=== PATIENT | male | born 1935 | race Caucasian/White ===

== ENCOUNTER 2018-07-17 18:57 | Outpatient (CLI) | payer MEDICARE, MEDICAID | END 2018-07-17 23:59 | disposition home or self-care (01) | LOC: CL 18:57 | PROVIDERS: ATTEND Family Medicine | DX: E86.0 Dehydration (principal) | CPT/HCPCS: 36569; C1751 ==

== ENCOUNTER 2018-10-03 10:48 | Inpatient (IN) | payer MEDICARE, MEDICAID ==
[~2018-10-03] VITALS: Ht 162.6 cm; Wt 61.9 kg
--- NOTE | 2018-10-03 10:52 | NUR ---
BIBPA UNIT 255 FROM [facility] FOR VOMITING x 2 THIS MORNING. TO ER BED 9, HOOKED TO MONITOR, CHANGED TO DR CALI CHILDS AT BEDSIDE
[2018-10-03] MEDS ORDERED: ONDANSETRON HCL/PF 4 MG/2 ML VIAL ONE (11:15)
[2018-10-03] MEDS ORDERED: PSYL1PAC8 PO (11:23)
[2018-10-03] MEDS ORDERED: ASCO-340 PO (11:23)
[2018-10-03] MEDS ORDERED: IPRA0.2S9 IH (11:23)
[2018-10-03] MEDS ORDERED: ASPI-1169 PO (11:23)
[2018-10-03] MEDS ORDERED: NUTR1PAC14 PO (11:23)
[2018-10-03] MEDS ORDERED: MAG30ORA PO (11:23)
[2018-10-03] MEDS ORDERED: MULT-447 PO (11:23)
[2018-10-03] MEDS ORDERED: MORP20SO PO (11:23)
[2018-10-03] MEDS ORDERED: PANT40TA2 PO (11:23)
[2018-10-03] MEDS ORDERED: NA P133E RC (11:23)
[2018-10-03] MEDS ORDERED: ATRO2DRO4 PO (11:23)
[2018-10-03] MEDS ORDERED: BISA10SU8 RC (11:23)
[2018-10-03] MEDS ORDERED: ATOR10TA PO (11:23)
[2018-10-03] MEDS ORDERED: DOCU250C14 PO (11:23)
[2018-10-03] MEDS ORDERED: ACET650S11 RC (11:23)
[2018-10-03] MEDS ORDERED: ONDA8TAB6 PO (11:23)
[2018-10-03] MEDS ORDERED: ACET-868 PO ×2 (11:23)
[2018-10-03] MEDS ORDERED: LOSA50TA39 PO (11:23)
[2018-10-03] MEDS ORDERED: ALBU2.5V38 IH (11:23)
[2018-10-03] MEDS ORDERED: AMIN30LI27 PO (11:23)
[2018-10-03] MEDS ORDERED: TAMS-12 PO (11:23)
[2018-10-03] MEDS ORDERED: MAGN400O6 PO (11:23)
[2018-10-03] MEDS ORDERED: LEVO75TA7 PO (11:23)
[2018-10-03] MEDS ORDERED: ONDANSETRON HCL/PF 4 MG/2 ML VIAL IVP ONE (11:30)
[2018-10-03] MEDS ORDERED: IV NS 0.9% 1,000 ML BAG IV ONE ×2 (11:30→14:00)
[2018-10-03 11:31] LABS: BASOPHILS # (AUTO) 0.1 /CMM (0.0-0.2); BASOPHILS % (AUTO) 0.6 % (0.0-2.0); HEMATOCRIT 36 % (39-51); LYMPHOCYTES # (AUTO) 0.3 /CMM (0.8-4.8); LYMPHOCYTES % (AUTO) 2.7 % (20.0-44.0); MEAN CORPUSCULAR HGB CONC 33 g/dl (31.0-36.0); MEAN CORPUSCULAR VOLUME 87 fL (80-96); MONOCYTES # (AUTO) 0.4 /CMM (0.1-1.30); NEUTROPHILS # (AUTO) 10.2 /CMM (1.8-8.9); NEUTROPHILS % (AUTO) 92.7 % (43.0-81.0); PLATELET COUNT (AUTO) 359 /CMM (150-450); RED BLOOD CELL COUNT(AUTO) 4.12 MIL/uL (4.5-6.0)
[2018-10-03 11:39] LABS: CALCIUM, SERUM 8.7 mg/dL (8.5-10.1); CARBON DIOXIDE 26 mmol/L (21-32); CHLORIDE 103 mmol/L (98-107); CREATININE 1.2 mg/dL (0.6-1.3); GLUCOSE 156 mg/dL (74-106); POTASSIUM 3.3 mmol/L (3.5-5.1); SODIUM SERUM 140 mmol/L (136-145); UREA NITROGEN, BLOOD 24 mg/dL (7-18)
[2018-10-03 11:45] LABS: APPEARANCE,URINE Clear (CLEAR); BILIRUBIN,URINE Negative (NEGATIVE); BLOOD, URINE Moderate Ery/uL (NEGATIVE); COLOR,URINE Yellow (YELLOW); KETONES,URINE Negative (NEGATIVE); LEUKOCYTE ESTERASE ,URINE Negative (NEGATIVE); NITRITE, URINE Negative (NEGATIVE); PROTEIN,URINE Trace mg/dl (NEGATIVE); UGLUCOSE Negative (NEGATIVE); UROBILINOGEN,URINE 0.2 EU/dL (0.2)
[2018-10-03 11:45] LABS: ALANINE AMINOTRANSFERASE 24 U/L (12-78); ALKALINE PHOSPHATASE 103 U/L (46-116); ASPARTATE AMINOTRANSFERASE 22 U/L (15-37); BILIRUBIN,DIRECT 0.1 mg/dL (0.0-0.2); BILIRUBIN,TOTAL 0.6 mg/dL (0.2-1.0); TOTAL PROTEIN, SERUM 7.5 g/dL (6.4-8.2)
[2018-10-03] MEDS ORDERED: ACETAMINOPHEN 650 MG/SUPP.RECT RC ONE ×3 (11:45→14:00)
--- NOTE | 2018-10-03 11:45 | NUR ---
wasted 650mg tylenol suppository, accidentally dropped the medication on the floor.
--- NOTE | 2018-10-03 11:46 | NUR ---
Dr Nur verbally ordered tylenol 650mg suppository.
[2018-10-03 11:53] LABS: BACTERIA,URINE 1+ /HPF (None Seen); RBC,URINE 21-50 /HPF (0-2); SQUAMOUS EPITHELIAL CELL,UR None Seen /HPF (None Seen)
[2018-10-03 11:54] LABS: HYALINE CASTS, URINE Moderate /LPF (None Seen); MUCUS,URINE Many /LPF (None Seen)
--- NOTE | 2018-10-03 12:46 | NUR ---
[facility] PAGED ISAMAR
[2018-10-03] MEDS ORDERED: LEVOFLOXACIN 750 MG /D5W 150ML 150 ML IV ONE ×2 (13:44→14:00)
[2018-10-03] MEDS ORDERED: PIPERACILLIN /TAZOBACTAM 3.375 G in IV D5W 50 ML IV ONE (14:00)
[2018-10-03] MEDS ORDERED: HYDROCODONE/APAP 5/325MG 1 EACH TABLET PO PRN (14:30)
[2018-10-03] MEDS ORDERED: BISACODYL SUPP (10 MG) 10 MG/SUPP.RECT SUPP.RECT RC PRN (14:30)
[2018-10-03] MEDS ORDERED: MAGNESIUM HYDROXIDE 30 ML UDC PO PRN ×2 (14:30)
[2018-10-03] MEDS ORDERED: MAG HYDROX/AL HYDROX/SIMETH 30 ML UDC PO PRN ×2 (14:30)
[2018-10-03] MEDS ORDERED: NA PHOS,M-B/NA PHOS,DI-BA 1 EA ENEMA RC PRN (14:30)
[2018-10-03] MEDS ORDERED: ATROPINE SULFATE OPHTH SOLN 15 ML BOTTLE EACHEYE PRN (14:30)
[2018-10-03] MEDS ORDERED: VANCOMYCIN 1 GM in IV NS 0.9% 250 ML IV SCH (14:30)
[2018-10-03] MEDS ORDERED: ONDANSETRON HCL/PF 4 MG/2 ML VIAL IVP PRN (14:30)
[2018-10-03] MEDS ORDERED: IPRATROPIUM NEB FS 0.5 MG/2.5 ML AMPUL.NEB IH PRN (14:30)
[2018-10-03] MEDS ORDERED: Z GUARD REMEDY 2 OZ OINT TP PRN (14:30)
--- NOTE | 2018-10-03 14:49 | NUR ---
UNABLE TO DO A 2D ECHO DUE TO PATIENT POSITIONING. PATIENT UNCOOPERATIVE AND UNRESPONSIVE.
--- NOTE | 2018-10-03 15:11 | NUR ---
[facility] paged
--- NOTE | 2018-10-03 15:16 | NUR ---
Report given to MARILYN Lane for BUD tele [phone].
--- NOTE | 2018-10-03 15:30 | NUR ---
ADMISSION NOTES PATIENT ADMITTED FROM ER 83Y/OLD MALE ON TELE, DX OF SEPSIS. TELE MONITOR ON SR- 103/ 104 . PATIENT NON VERNAL, CONFUSED, TOTAL CARE. SKIN ASSESSMENT DONE PATIENT HAS A RASH ON UPPER CHEST, PICTURE TAKEN PATIENT INCONTINENT, USING DIAPER. ASSIST TURN AND REPOSTION Q 2 HR. IV ACCESS ON LEFT FA INTACT, V/S TAKEN BP-129/70, P-84, R-19, 02-96 ROOM AIR, T98.9. NEEDS ATTENDED AND ANTICIPATED, DR PENN AWARE OF NEW PATIENT AND MEDICATION. CALL LIGHT WITHIN TO REACH. SIDE RAILS UP X3, CONTINUED MONITORING.
[2018-10-03] MEDS ORDERED: FEE PK DOSING 1 MIN EA MC ONE (15:37)
[2018-10-03 15:52] VITALS: BP 129/70
[2018-10-03 16:00] VITALS: BP 129/70
[2018-10-03] MEDS: VANCOMYCIN 0.75 GM in IV D5W 250 ML IV SCH (16:32)
[2018-10-03] MEDS: IV NS 0.9% 1,000 ML IV PRN (16:32)
[2018-10-03] MEDS: PIPERACILLIN /TAZOBACTAM 3.375 G in IV D5W 50 ML IV SCH ×2 (17:44→23:36)
--- NOTE | 2018-10-03 18:30 | NUR ---
RN NOTES PATIENT STABLE, NO ACUTE RESPIRATORY DISTRESS, V/S STABLE, INFUSING ZOSYN IV AT THIS TIME, INTACT, ASSIST TURN AND REPOSTION Q 2 HR. ASSIST EATING BY FUR DRESSING SUPERVISOR PATIENT TOLERATED 75% . CALL LIGHT WITHIN TO REACH, SAFETY PRECAUTION MAINTAINED ALL THE TIME.
--- NOTE | 2018-10-03 19:10 | NUR ---
DIPLOMA DENTAL ASSISTANT OPENING NOTES Received patient in bed, sleeping. As per report from MARILYN Mcgowan, patient is non-verbal. Breathing even and unlabored. Not in any distress. Peripheral IV infusing at 75 mL/hr. Potassium is 3.3, no replacement as per RN, been trying to call pharmacy but no answer, morning CN Sherry aware. As per CN and RN, 3.3 is not critical, will do it tomorrow. Tele monitor in place, sinus rhythm 96. Patient stable as endorsed by the morning RN. Will continue to monitor accordingly
[2018-10-03] MEDS ORDERED: ALBUTEROL FS 2.5 MG/0.5 ML VIAL.NEB NEB PRN (19:30)
[2018-10-03] MEDS: ALBUTEROL FS 2.5 MG/3 ML VIAL.NEB NEB SCH (19:30)
[2018-10-03 20:00] VITALS: BP 120/78
[2018-10-03 20:07] VITALS: BP 120/78
[2018-10-03] MEDS: ENOXAPARIN SODIUM 40 MG/0.4 ML DISP.SYRIN SQ SCH (20:45)
[2018-10-03] MEDS: ATORVASTATIN 10 MG TABLET PO SCH (21:34)
[2018-10-03] MEDS: TAMSULOSIN 0.4 MG CAP.SR.24H PO SCH (21:34)
--- NOTE | 2018-10-03 21:45 | NUR ---
LEAF SUCKER OPERATOR NOTES Parth Amy informed about potassium of 3.3. Order of potassium chloride 40meq PO once, noted and carried out.
[2018-10-03] MEDS ORDERED: POTASSIUM CHLORIDE 20 MEQ TAB.PRT.SR PO ONE (22:00)
[2018-10-04] VITALS: BP 121/66
[2018-10-04] MEDS: IV NS 0.9% 1,000 ML IV PRN ×2 (03:35→14:35)
[2018-10-04] MEDS: VANCOMYCIN 0.75 GM in IV D5W 250 ML IV SCH ×3 (03:37→16:43)
[2018-10-04 04:00] VITALS: BP 125/79
[2018-10-04] MEDS: PIPERACILLIN /TAZOBACTAM 3.375 G in IV D5W 50 ML IV SCH ×4 (05:33→23:11)
[2018-10-04 06:04] LABS: BASOPHILS % (AUTO) 0.1 % (0.0-2.0); HEMATOCRIT 28 % (39-51); HEMOGLOBIN 9.4 g/dL (13.5-17.5); LYMPHOCYTES # (AUTO) 0.6 /CMM (0.8-4.8); MEAN CORPUSCULAR HGB CONC 34 g/dl (31.0-36.0); MEAN CORPUSCULAR VOLUME 87 fL (80-96); MONOCYTES # (AUTO) 0.5 /CMM (0.1-1.30); MONOCYTES % (AUTO) 4.4 % (2.0-12.0); NEUTROPHILS # (AUTO) 10.6 /CMM (1.8-8.9); NEUTROPHILS % (AUTO) 90.5 % (43.0-81.0); PLATELET COUNT (AUTO) 229 /CMM (150-450); RED BLOOD CELL COUNT(AUTO) 3.22 MIL/uL (4.5-6.0); WHITE BLOOD COUNT (AUTO) 11.7 K/uL (4.3-11.0)
[2018-10-04 06:19] LABS: CHOLESTEROL 124 mg/dL (<200); HDL CHOLESTEROL 56 mg/dL (40-60); LDL 68 mg/dL (0-99); TRIGLYCERIDES 37 mg/dL (30-150)
[2018-10-04 06:25] LABS: CARBON DIOXIDE 23 mmol/L (21-32); CHLORIDE 107 mmol/L (98-107); GLUCOSE 151 mg/dL (74-106); PHOSPHORUS 2.8 mg/dL (2.5-4.9); POTASSIUM 3.6 mmol/L (3.5-5.1); SODIUM SERUM 139 mmol/L (136-145); UREA NITROGEN, BLOOD 23 mg/dL (7-18)
--- NOTE | 2018-10-04 07:10 | NUR ---
CONTROL OFFICER MANAGER CLOSING NOTES Patient sleeping in bed. Breathing even and unlabored. Not in any distress. Peripheral IV infusing at 125mL/hr. Tele monitor in place, sinus rhythm 87. No acute changes throughout the shift. All needs attended to. All due medications given as ordered. Safety precautions in place. Endorsed BUD to MARILYN Sam
--- NOTE | 2018-10-04 07:23 | NUR ---
AWNING FRAME MAKER OPENING NOTES PT WAS RECEIVED IM BED AT LOWEST AND LOCKED POSITION WITH SIDE RAILS UP X2, PT IS NONVERBAL A/O X0-1 ON BEDREST, BREATHING EVEN AND UNLABORED ON RA, NO S/S OF PAIN OR DISTRESS NOTED, IV IS PATENT AND INTACT, SAFETY PRECAUTIONS IN PLACE, CALL LIGHT WITHIN REACH, WILL MONITOR ACCORDINGLY
[2018-10-04 08:00] VITALS: BP 113/86
[2018-10-04] MEDS: LEVOTHYROXINE SODIUM 75 MCG TABLET PO SCH (08:35)
[2018-10-04] MEDS: DOCUSATE SODIUM 250 MG CAPSULE PO SCH (08:35)
[2018-10-04] MEDS: LACTOBACILLUS RHAMNOSUS GG 1 EACH CAP.SPRINK PO SCH ×2 (08:35→16:52)
[2018-10-04] MEDS: ASPIRIN 81 MG TAB.CHEW PO SCH (08:35)
[2018-10-04] MEDS: LOSARTAN POTASSIUM 50 MG TABLET PO SCH (08:36)
[2018-10-04] MEDS: PANTOPRAZOLE 40 MG TABLET.DR PO SCH (08:37)
[2018-10-04] MEDS: ACETAMINOPHEN 325 MG TABLET PO PRN (11:44)
--- NOTE | 2018-10-04 11:45 | NUR ---
RN NOTE PT GIVEN TYLENOL AT THIS TIME DUE TO FEVER OF 100.6
[2018-10-04 16:00] VITALS: BP 149/64
[2018-10-04] MEDS: ALBUTEROL FS 2.5 MG/3 ML VIAL.NEB NEB SCH ×3 (16:20→19:34)
--- NOTE | 2018-10-04 16:43 | NUR ---
RN NOTE VANCO TROUGH CAMEBACK 20, PHARMACY WAS CALLED REGARDING DOSE ADMINISTRATION AND THEY SAID IT WAS OKAY TO GIVE, VANCO GIVEN AT THIS TIME
--- NOTE | 2018-10-04 18:18 | NUR ---
RN CLOSING NOTE PT IN BED AT LOWEST AND LOCKED POSITION WITH SIDERAILS UP X2, A/O X0-1 NON-VERBAL, BREATHING EVEN AND UNLABORED ON RA, NO S/S OF PAIN OR DISTRESS, IV IS PATENT AND INTACT, ON KCI MATTRESS, SAFETY PRECAUTIONS IN PLACE, CALL LIGHT WITHIN REACH, ALL NEEDS ATTENDED TO, WILL ENDORSE TO AUTOMOBILE RENTAL AGENT RN FOR BUD.
--- NOTE | 2018-10-04 19:05 | NUR ---
MS RN OPENING NOTES Received patient sleeping in bed. Breathing even and unlabored, tolerating RA. Not in any distress. Peripheral IV infusing at 125mL/hr. Safety measures in place. Call giraldo within easy reach. Bed in low, locked position. Will continue to monitor accordingly
[2018-10-04 20:00] VITALS: BP 146/67
[2018-10-04 20:03] VITALS: BP 146/67
[2018-10-04] MEDS: ENOXAPARIN SODIUM 40 MG/0.4 ML DISP.SYRIN SQ SCH (21:11)
[2018-10-04] MEDS: TAMSULOSIN 0.4 MG CAP.SR.24H PO SCH (21:14)
[2018-10-04] MEDS: ATORVASTATIN 10 MG TABLET PO SCH (21:14)
[2018-10-05] MEDS: ALBUTEROL FS 2.5 MG/3 ML VIAL.NEB NEB SCH ×7 (00:11→23:03)
[2018-10-05] MEDS: IV NS 0.9% 1,000 ML IV PRN (02:45)
[2018-10-05] MEDS: VANCOMYCIN 0.75 GM in IV D5W 250 ML IV SCH ×2 (03:24→21:36)
[2018-10-05] MEDS: PIPERACILLIN /TAZOBACTAM 3.375 G in IV D5W 50 ML IV SCH ×3 (05:29→17:09)
[2018-10-05 06:35] LABS: CALCIUM, SERUM 7.9 mg/dL (8.5-10.1); CARBON DIOXIDE 22 mmol/L (21-32); CHLORIDE 108 mmol/L (98-107); GLUCOSE 134 mg/dL (74-106); MAGNESIUM 1.9 mg/dL (1.8-2.4); PHOSPHORUS 2.1 mg/dL (2.5-4.9); SODIUM SERUM 140 mmol/L (136-145); UREA NITROGEN, BLOOD 17 mg/dL (7-18)
[2018-10-05 06:36] LABS: POTASSIUM 2.6 mmol/L (3.5-5.1)
--- NOTE | 2018-10-05 06:40 | NUR ---
RN NOTES Received a call from lab with critical value of Potassium 2.60. Called Parth Reyes DNP. Awaiting callback
[2018-10-05 06:47] LABS: BASOPHILS % (AUTO) 0.1 % (0.0-2.0); HEMATOCRIT 26 % (39-51); HEMOGLOBIN 8.9 g/dL (13.5-17.5); LYMPHOCYTES # (AUTO) 0.5 /CMM (0.8-4.8); LYMPHOCYTES % (AUTO) 5.2 % (20.0-44.0); MEAN CORPUSCULAR HGB CONC 34 g/dl (31.0-36.0); MEAN CORPUSCULAR VOLUME 87 fL (80-96); MONOCYTES # (AUTO) 0.6 /CMM (0.1-1.30); MONOCYTES % (AUTO) 5.8 % (2.0-12.0); NEUTROPHILS # (AUTO) 8.5 /CMM (1.8-8.9); NEUTROPHILS % (AUTO) 88.9 % (43.0-81.0); PLATELET COUNT (AUTO) 205 /CMM (150-450); RED BLOOD CELL COUNT(AUTO) 3.02 MIL/uL (4.5-6.0); WHITE BLOOD COUNT (AUTO) 9.6 K/uL (4.3-11.0)
--- NOTE | 2018-10-05 06:53 | NUR ---
RN CLOSING NOTES Patient sleeping in bed. Breathing even and unlabored. Not in any distress. Peripheral IV infusing at 125mL/hr. No acute changes throughout the shift. All needs attended to. All due medications given as ordered. Safety precautions in place; call giraldo within easy reach. Bed in lowest locked position. Will endorsed BUD to oncoming RN
--- NOTE | 2018-10-05 07:33 | NUR ---
RN NOTES No callback received from Parth Reyes DNP. Endorsed critical value to MARILYN Valdez.
--- NOTE | 2018-10-05 07:41 | NUR ---
MS RN OPENING NOTES RECEIVED PT IN BED, AWAKE, A/O X1. IN NO SIGNS OF PAIN OR DISTRESS AT THIS TIME. ON ROOM AIR, BREATHING EVEN AND UNLABORED NOTED. IVF NS AT 125ML/HR TO LAWRENCE G20, INFUSING WELL. NO SIGNS OF INFILTRATION NOTED. SAFETY MEASURES OBSERVED; BED KEPT IN LOW AND LOCKED POSITION WITH SIDE RAILS UP X3. CALL LIGHT KEPT WITHIN REACH. WILL CONTINUE TO MONITOR.
[2018-10-05] MEDS: PANTOPRAZOLE 40 MG TABLET.DR PO SCH (07:58)
[2018-10-05] MEDS: LEVOTHYROXINE SODIUM 75 MCG TABLET PO SCH (07:59)
[2018-10-05 08:00] VITALS: BP 106/71
[2018-10-05] MEDS: LACTOBACILLUS RHAMNOSUS GG 1 EACH CAP.SPRINK PO SCH ×2 (08:20→16:20)
[2018-10-05] MEDS: DOCUSATE SODIUM 250 MG CAPSULE PO SCH (08:20)
[2018-10-05] MEDS: ASPIRIN 81 MG TAB.CHEW PO SCH (08:20)
[2018-10-05] MEDS: LOSARTAN POTASSIUM 50 MG TABLET PO SCH (08:28)
--- NOTE | 2018-10-05 09:13 | NUR ---
RN NOTES DR PENN ON UNIT AND MADE AWARE OF PT'S LOW CRITICAL LEVEL OF POTASSIUM 2.6. SHE SAID THAT SHE SAW IT AND WILL MADE SOME ORDERS. WILL CONTINUE TO MONITOR.
[2018-10-05] MEDS ORDERED: POTASSIUM CHLORIDE 20 MEQ TAB.PRT.SR PO ONE (10:00)
[2018-10-05] MEDS: POTASSIUM CL. PREMIX PERIPHER. 50 ML IV SCH ×4 (10:18→13:42)
[2018-10-05] MEDS: Potassium Phosphate meq 11 MEQ in IV D5W 100 ML IV SCH ×2 (10:19→13:43)
--- NOTE | 2018-10-05 15:30 | NUR ---
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 CONTACT ISOLATION INITIATED. FAMILY CALLED AND MADE AWARE. WILL CONTINUE TO MONITOR.
--- NOTE | 2018-10-05 15:43 | NUR ---
RN NOTES PT WITH LOW POTASSIUM LEVEL OF 2.6 REPLACED WITH 40 MEQS OF KDUR PO AND 40MEQ OF KCL IV. WILL CONTINUE TO MONITOR.
[2018-10-05 16:00] VITALS: BP 98/63
--- NOTE | 2018-10-05 18:41 | NUR ---
MS RN CLOSING NOTE PATIENT IN BED, RESTING COMFORTABLY IN HIGH BACK REST POSITION; A&O X1. ON ROOM AIR, TOLERATING WELL WITH NO SOB NOTED. ON FULL LIQUID DIET, ASSISTED WITH MEALS. SALINE LOCK TO RFA G20 AND LFA G22, BOTH INTACT AND PATENT WITH NO INFILTRATION NOTED. ALL SAFETY MEASURES KEPT IN PLACE; BED IN LOW LOCKED POSITION WITH SIDE RAILS UP X3. BILATERAL HEELS OFF-LOADED. TURNED AND REPOSITIONED [id number] AND PRN. KEPT COMFORTABLE, CLEAN AND DRY. CALL LIGHT WITHIN REACH. ALL NEEDS AND CARE PROVIDED WELL. WILL ENDORSE TO INCOMING NIGHT NURSE FOR CONTINUITY OF CARE.
[2018-10-05 20:00] VITALS: BP 148/69
[2018-10-05] MEDS: TAMSULOSIN 0.4 MG CAP.SR.24H PO SCH (22:00)
[2018-10-05] MEDS: MUPIROCIN OINT 2% 22 GM TUBE SCH (22:35)
[2018-10-05] MEDS: ATORVASTATIN 10 MG TABLET PO SCH (22:36)
[2018-10-05] MEDS: ENOXAPARIN SODIUM 40 MG/0.4 ML DISP.SYRIN SQ SCH (22:38)
--- NOTE | 2018-10-05 22:58 | NUR ---
MS/RN FLOMAX NOT GIVEN, PATIENT CAN NOT SWALLOW WHOLE MED. CALLED [facility], NO ALTERNATIVE SUGGESTED. WILL INFORM MD IN A.M.
[2018-10-06] MEDS: PIPERACILLIN /TAZOBACTAM 3.375 G in IV D5W 50 ML IV SCH ×5 (00:15→23:08)
[2018-10-06] MEDS: ALBUTEROL FS 2.5 MG/3 ML VIAL.NEB NEB SCH ×6 (04:27→22:59)
--- NOTE | 2018-10-06 07:30 | NUR ---
MS RN NOTES PATIENT EYES CLOSED, EASY TO AROUSE. NO ACUTE DISTRESS NOTED. BREATHING UNLABORED. HOB ELEVATED. IV ACCESS PATENT AND INTACT, NO REDNESS OR SWELLING NOTED. CALL LIGHT WITHIN REACH. SAFETY MEASURES IN PLACE. WILL CONTINUE TO MONITOR ACCORDINGLY.
--- NOTE | 2018-10-06 07:43 | NUR ---
MS/RN PATIENT IS STILL SLEEPING, EASILY AROUSABLE, APPEAR COMFORTABLE, NO DISTRESS NOTED, ALL NEEDS ATTENDED AT THIS TIME. ENDORSED TO NEXT RN FOR CONTINUITY OF CARE.
[2018-10-06 08:00] VITALS: BP 153/72
[2018-10-06] MEDS: LEVOTHYROXINE SODIUM 75 MCG TABLET PO SCH (08:30)
[2018-10-06] MEDS: PANTOPRAZOLE 40 MG TABLET.DR PO SCH (08:30)
[2018-10-06] MEDS: MUPIROCIN OINT 2% 22 GM TUBE SCH ×2 (08:50→21:34)
[2018-10-06] MEDS: LACTOBACILLUS RHAMNOSUS GG 1 EACH CAP.SPRINK PO SCH ×2 (08:50→17:50)
[2018-10-06] MEDS: LOSARTAN POTASSIUM 50 MG TABLET PO SCH (08:51)
[2018-10-06] MEDS: ASPIRIN 81 MG TAB.CHEW PO SCH (08:51)
[2018-10-06] MEDS: DOCUSATE SODIUM 250 MG CAPSULE PO SCH (08:51)
[2018-10-06] MEDS: ACETAMINOPHEN 325 MG TABLET PO PRN ×2 (08:51→17:50)
--- NOTE | 2018-10-06 11:12 | NUR ---
WOUND CARE CONSULT: PT PRESENTS WITH HYPERKERATOTIC SCAR TO SACRUM AND FINE RASH TO UPPER TORSO, PRESENT ON ADMISSION. PT IS INCONTINENT, IMMOBILE WITH LOWER EXTREMITY CONTRACTURES. PT DOES SOMETIMES GRAB NURSING STAFF. RECOMMENDATIONS MADE FOR SKIN PROTECTION. DISCUSSED WITH NURSING STAFF. PT ON FIRST STEP CIRS LOW AIRLOSS MATTRESS. CURRENT ALICE SCORE IS 12. DEFER TO MD FOR RASH. WILL SEE PRN. MD IN AGREEMENT WITH PLAN OF CARE. Addendum: 10/06/18 at 1114 by KAYODE DELA CRUZ WNDNU Amended: Links added.
[2018-10-06 11:23] LABS: BASOPHILS % (AUTO) 0.2 % (0.0-2.0); HEMATOCRIT 25 % (39-51); HEMOGLOBIN 8.6 g/dL (13.5-17.5); LYMPHOCYTES # (AUTO) 0.4 /CMM (0.8-4.8); MEAN CORPUSCULAR HGB CONC 34 g/dl (31.0-36.0); MEAN CORPUSCULAR VOLUME 84 fL (80-96); MONOCYTES # (AUTO) 0.5 /CMM (0.1-1.30); MONOCYTES % (AUTO) 6.2 % (2.0-12.0); NEUTROPHILS # (AUTO) 7.7 /CMM (1.8-8.9); NEUTROPHILS % (AUTO) 88.6 % (43.0-81.0); PLATELET COUNT (AUTO) 216 /CMM (150-450); RED BLOOD CELL COUNT(AUTO) 2.97 MIL/uL (4.5-6.0); WHITE BLOOD COUNT (AUTO) 8.6 K/uL (4.3-11.0)
[2018-10-06 11:34] LABS: CALCIUM, SERUM 7.6 mg/dL (8.5-10.1); CARBON DIOXIDE 24 mmol/L (21-32); CHLORIDE 105 mmol/L (98-107); CREATININE 0.8 mg/dL (0.6-1.3); GLUCOSE 122 mg/dL (74-106); MAGNESIUM 1.8 mg/dL (1.8-2.4); PHOSPHORUS 2.4 mg/dL (2.5-4.9); SODIUM SERUM 139 mmol/L (136-145); UREA NITROGEN, BLOOD 13 mg/dL (7-18)
[2018-10-06 11:37] LABS: POTASSIUM 2.4 mmol/L (3.5-5.1)
--- NOTE | 2018-10-06 11:40 | NUR ---
MS RN NOTES SEEN AND EVALUATED BY BERTO ZACARIAS WITH NEW ORDERS MADE, NOTED AND CARRIED OUT.
[2018-10-06] MEDS ORDERED: NEUTRA PHOS 1 POWD.PACKET PO ONE (14:00)
--- NOTE | 2018-10-06 14:21 | NUR ---
MS RN NOTES THEATRICAL RIGGER CONY ZACARIAS MADE AWARE OF LOW POTASSIUM LEVEL WITH NEW ORDERS FOR KCL 60MEQ PO X 1 DOSE. NOTED AND CARRIED OUT.
[2018-10-06] MEDS ORDERED: POTASSIUM CHLORIDE 20 MEQ POWDER PACKET PO ONE (14:30)
[2018-10-06] MEDS ORDERED: POTASSIUM CHLORIDE 20 MEQ POWDER PACKET PO SCH (14:30)
[2018-10-06] MEDS: VANCOMYCIN 0.75 GM in IV D5W 250 ML IV SCH (15:36)
[2018-10-06 16:00] VITALS: BP 165/74
--- NOTE | 2018-10-06 19:00 | NUR ---
MS RN NOTES PATIENT EYES CLOSED, EASY TO AROUSE. NO ACUTE DISTRESS NOTED. BREATHING UNLABORED. HOB ELEVATED. IV ACCESS PATENT AND INTACT, NO REDNESS OR SWELLING NOTED.NEEDS ATTENDED AND ANTICIPATED. KEPT CLEAN DRY AND COMFORTABLE. DUE MEDICATIONS GIVEN, NO ASE NOTED. CALL LIGHT WITHIN REACH. SAFETY MEASURES IN PLACE. ENDORSED TO NIGHT NURSE FOR CONTINUITY OF CARE..
--- NOTE | 2018-10-06 19:51 | NUR ---
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 RESPIRATIONS EVEN AND UNLABORED ON ROOM AIR WITH ROUTINE BREATHING TX. PATIENT WITH SACRAL ESCAR , BED BOUND, WITH CONDOM CATHETER, ON ASPIRATIONS PRECAUTIONS WITH ST EVAL ORDERED, HOB ELEVATED,RECEIVED REPORT FROM AM RN FOR BUD. WILL MONITOR.BED LOCKED, CALL LIGHTS WITHIN REACH, BED LOCKED.
[2018-10-06 20:00] VITALS: BP 156/77
[2018-10-06 20:39] VITALS: BP 156/77
[2018-10-06] MEDS: ATORVASTATIN 10 MG TABLET PO SCH (21:17)
[2018-10-06] MEDS: TAMSULOSIN 0.4 MG CAP.SR.24H PO SCH (21:17)
[2018-10-06] MEDS: ENOXAPARIN SODIUM 40 MG/0.4 ML DISP.SYRIN SQ SCH (21:23)
[2018-10-07] MEDS: ALBUTEROL FS 2.5 MG/3 ML VIAL.NEB NEB SCH ×6 (03:40→23:47)
[2018-10-07] MEDS: PIPERACILLIN /TAZOBACTAM 3.375 G in IV D5W 50 ML IV SCH ×4 (05:14→23:09)
--- NOTE | 2018-10-07 06:43 | NUR ---
309-1 MS/RN NOTES PATIENT WITH ALTERED LEVEL OF CONSCIOUSNESS, NON VERBAL AND LETHARGIC. REQUIRE EXTENSIVE ASSISTANCE, ON SCHEDULED BREATHING TX BY RT, REPOSITIONES, AND ANTIBIOTIC THETRAPY EVERY 6 HOURS, SKIN PALE, WARM TO TOUCH, ON OXYGEN VIA NC FOR COMFORT. KEPT SKIN INTACT AND DRY, ON CONDOM CATHETER DRAINING MODERATE YELOW COLOR URINE. KEPT HOB , ASPIRATION PRECAUTION. MONITORED FOR ANY CHANGES. WILL ENDORSE TO AM RN FOR BUD. BED LOCKED CALL LIGHTS WITHIN REACH. IV SITE ON RIGHT UPPER ARM PATENT. WILL MONITOR.
[2018-10-07 08:00] VITALS: BP_SYST 150; BP_SYST 159; BP_DIAS 74
--- NOTE | 2018-10-07 08:00 | NUR ---
rn notes RECEIVED PATIENT IN THE BED NON VERBAL, NO ACUTE RESPIRATORY DISTRESS, NO SOB, V/S STABLE. OPEN EYES WHEN CALLED NAME OR TOUCHED. PATIENT TOTAL CARE, ASPERSION PRECAUTION. WHEN TOUCHING PATIENT MUSCLE GET FIRM. PATIENT ASPIRATION PRECAUTION, ASSIST TURN AND REPOSTION Q 2 HR, IV ACCESS ON RIGHT AC AREA INTACT, INFUSING VANCOMYCIN ORDERED, CALL LIGHT WITHIN TO REACH, SAFETY PRECAUTION MAINTAINED ALL THE TIME. ASSIST TURN AND REPOSTION Q 2 HR. PATIENT HAS CONDOM CATH.
[2018-10-07 08:28] LABS: BASOPHILS % (AUTO) 0.2 % (0.0-2.0); HEMATOCRIT 30 % (39-51); LYMPHOCYTES # (AUTO) 0.5 /CMM (0.8-4.8); LYMPHOCYTES % (AUTO) 4.7 % (20.0-44.0); MEAN CORPUSCULAR HGB CONC 34 g/dl (31.0-36.0); MEAN CORPUSCULAR VOLUME 85 fL (80-96); MONOCYTES # (AUTO) 0.8 /CMM (0.1-1.30); MONOCYTES % (AUTO) 7.3 % (2.0-12.0); NEUTROPHILS % (AUTO) 87.8 % (43.0-81.0); PLATELET COUNT (AUTO) 247 /CMM (150-450); WHITE BLOOD COUNT (AUTO) 11.4 K/uL (4.3-11.0)
[2018-10-07 08:39] LABS: CALCIUM, SERUM 8.1 mg/dL (8.5-10.1); CARBON DIOXIDE 25 mmol/L (21-32); CHLORIDE 100 mmol/L (98-107); CREATININE 0.8 mg/dL (0.6-1.3); GLUCOSE 99 mg/dL (74-106); PHOSPHORUS 2.5 mg/dL (2.5-4.9); SODIUM SERUM 138 mmol/L (136-145); UREA NITROGEN, BLOOD 13 mg/dL (7-18)
[2018-10-07 08:53] LABS: POTASSIUM 2.5 mmol/L (3.5-5.1)
[2018-10-07] MEDS: LEVOTHYROXINE SODIUM 75 MCG TABLET PO SCH (09:22)
[2018-10-07] MEDS: LACTOBACILLUS RHAMNOSUS GG 1 EACH CAP.SPRINK PO SCH ×2 (09:22→16:06)
[2018-10-07] MEDS: PANTOPRAZOLE 40 MG TABLET.DR PO SCH (09:22)
[2018-10-07] MEDS: DOCUSATE SODIUM 250 MG CAPSULE PO SCH (09:22)
[2018-10-07] MEDS: LOSARTAN POTASSIUM 50 MG TABLET PO SCH (09:23)
[2018-10-07] MEDS: ASPIRIN 81 MG TAB.CHEW PO SCH (09:23)
[2018-10-07] MEDS: MUPIROCIN OINT 2% 22 GM TUBE SCH ×2 (09:28→20:16)
--- NOTE | 2018-10-07 09:30 | NUR ---
RN NOTES PATIENT WITH ST FOR SWALLOW EVALUATION, MEDICATION ADMINISTERED BY CRUSHED MIXED WITH APPLE SAUCE, HOB KEEP ELEVATED, CONTINUED MONITORING.
[2018-10-07] MEDS: VANCOMYCIN 0.75 GM in IV D5W 250 ML IV SCH (09:36)
--- NOTE | 2018-10-07 11:00 | NUR ---
RN NOTES GET CRITICAL LAB KCL 2.5, CALLED CONY THOMSON AND GET ORDER. ORDER TAKEN AND CARRIED OUT.
[2018-10-07] MEDS ORDERED: POTASSIUM CHLORIDE 20 MEQ POWDER PACKET GT ONE (12:30)
[2018-10-07] MEDS: POTASSIUM CL. PREMIX PERIPHER. 50 ML IV SCH ×2 (13:22→14:47)
[2018-10-07 16:02] VITALS: BP 146/70
[2018-10-07] MEDS: ACETAMINOPHEN 325 MG TABLET PO PRN ×2 (16:06→22:08)
--- NOTE | 2018-10-07 16:06 | NUR ---
RN NOTES GET TEMPERATURE RECTAL 101.4 F, ADMINISTERED TYLENOL 650 MG PO PRN, NOTIFIED CONY GAME TECHNICIAN, WAITING FOR RESPOND. CONTINUED MONITORING.
[2018-10-07 16:09] VITALS: BP 146/70
--- NOTE | 2018-10-07 16:23 | NUR ---
RN NOTES GET CALL BACK FROM CONY BOLT CUTTER NOTIFIED PATIENT CONDITION, AND GET NEW ORDER BLOOD CULTURE X2 STAT, ORDER TAKEN AND CARRIED OUT. CONTINUED MONITORING.
--- NOTE | 2018-10-07 18:23 | NUR ---
RN NOTES RECHECKED TEMPERATURE RECTALLY 101.5 F, CALLED CONY AND GET ORDER PROCALCITONIN, AND COOLING MEASURE, ORDER TAKEN AND CARRIED OUT. GIVE TYLENOL Q 6 HR. ENDORSED ONCOMING NURSE FOR PLAN OF CARE.
--- NOTE | 2018-10-07 19:30 | NUR ---
RN OPENING NOTES RECEIVED PATIENT IN BED, NON VERBAL. OPEN EYES WHEN CALLED NAME OR TOUCHED. NO ACUTE RESPIRATORY DISTRESS, NO SOB. TEMPERATURE CHECKED RECTALLY- 98.9F. IV ACCESS ON RIGHT FOREARM G#22 INTACT AND PATENT. ON ISOLATION FOR MRSA NARES. CONDOM CATH IN PLACE, DRAINING CLEAR, YELLOW URINE. SAFETY PRECAUTION MAINTAINED; CALL LIGHT WITHIN REACH, BED IN LOW, LOCKED POSITION. WILL CONTINUE TO MONITOR ACCORDINGLY
[2018-10-07] MEDS: ENOXAPARIN SODIUM 40 MG/0.4 ML DISP.SYRIN SQ SCH (20:17)
[2018-10-07 20:21] VITALS: BP 151/70
[2018-10-07] MEDS ORDERED: VANCOMYCIN 0.75 GM in IV D5W 250 ML IV SCH (21:00)
[2018-10-07] MEDS: TAMSULOSIN 0.4 MG CAP.SR.24H PO SCH (21:39)
[2018-10-07] MEDS: ATORVASTATIN 10 MG TABLET PO SCH (21:39)
--- NOTE | 2018-10-07 22:08 | NUR ---
RN NOTES Temperature checked rectally, 99.7F. Cooling measures provided and Tylenol 650mg given as ordered. Will continue to monitor
--- NOTE | 2018-10-07 22:08 | NUR ---
RN NOTES Temperature checked rectally, 99.7F. Tylenol 650mg given as ordered. will continue to monitor
[2018-10-08] MEDS: ALBUTEROL FS 2.5 MG/3 ML VIAL.NEB NEB SCH ×6 (03:30→22:30)
[2018-10-08] MEDS: PIPERACILLIN /TAZOBACTAM 3.375 G in IV D5W 50 ML IV SCH ×4 (06:32→23:33)
[2018-10-08 07:08] LABS: CALCIUM, SERUM 8.3 mg/dL (8.5-10.1); CARBON DIOXIDE 29 mmol/L (21-32); CHLORIDE 105 mmol/L (98-107); CREATININE 0.9 mg/dL (0.6-1.3); GLUCOSE 101 mg/dL (74-106); POTASSIUM 2.9 mmol/L (3.5-5.1); SODIUM SERUM 142 mmol/L (136-145); UREA NITROGEN, BLOOD 16 mg/dL (7-18)
--- NOTE | 2018-10-08 07:10 | NUR ---
MS RN OPENING NOTES PATIENT IN BED, NON VERBAL, OPENS EYES WHEN CALLED NAME OR TOUCHED. NO ACUTE DISTRESS OR SOB NOTED AT THIS TIME. IV ACCESS ON RIGHT FOREARM G#22 INTACT AND PATENT. ON ISOLATION FOR MRSA OF THE NARES. CONDOM CATH IN PLACE WITH DRAINING CLEAR YELLOW URINE. SAFETY PRECAUTIONS AND ISOLATION PRECAUTIONS MAINTAINED. BED IS IN LOWEST AND LOCKED POSITION. CALL LIGHT WITHIN REACH. WILL CONTINUE TO MONITOR.
--- NOTE | 2018-10-08 07:42 | NUR ---
RN CLOSING NOTES PATIENT IN BED, NON VERBAL. OPEN EYES WHEN CALLED NAME OR TOUCHED. NO ACUTE RESPIRATORY DISTRESS, NO SOB. IV ACCESS ON RIGHT FOREARM G#22 INTACT AND PATENT. ON ISOLATION FOR MRSA NARES. CONDOM CATH IN PLACE, DRAINING CLEAR, YELLOW URINE. SAFETY PRECAUTION AND ISOLATION PRECAUTION MAINTAINED; CALL LIGHT WITHIN REACH, BED IN LOW, LOCKED POSITION. ENDORSED BUD TO ONCOMING RN
[2018-10-08 08:00] VITALS: BP 171/73
[2018-10-08] MEDS: PANTOPRAZOLE 40 MG TABLET.DR PO SCH (08:38)
[2018-10-08] MEDS: LACTOBACILLUS RHAMNOSUS GG 1 EACH CAP.SPRINK PO SCH ×2 (08:38→17:15)
[2018-10-08] MEDS: DOCUSATE SODIUM 250 MG CAPSULE PO SCH (08:38)
[2018-10-08] MEDS: LEVOTHYROXINE SODIUM 75 MCG TABLET PO SCH (08:38)
[2018-10-08] MEDS: ASPIRIN 81 MG TAB.CHEW PO SCH (08:38)
[2018-10-08] MEDS: LOSARTAN POTASSIUM 50 MG TABLET PO SCH (09:20)
[2018-10-08] MEDS: MUPIROCIN OINT 2% 22 GM TUBE SCH ×2 (09:41→21:41)
[2018-10-08] MEDS: POTASSIUM CHLORIDE 20 MEQ POWDER PACKET NG SCH ×3 (09:51→12:19)
[2018-10-08] MEDS: ENSURE ENLIVE CHOC 237 ML CAN PO SCH ×2 (12:20→17:15)
[2018-10-08 15:58] VITALS: BP 160/82
--- NOTE | 2018-10-08 18:00 | NUR ---
MS RN CLOSING NOTES PATIENT IN BED RESTING. PT IS NON VERBAL BUT OPENS EYES WHEN CALLED NAME OR TOUCHED. NO ACUTE DISTRESS OR SOB NOTED ON SHIFT. IV ACCESS ON RIGHT FOREARM G#22 INTACT AND PATENT. PT ON ISOLATION FOR MRSA OF THE NARES; SAFETY PRECAUTIONS AND ISOLATION PRECAUTIONS MAINTAINED. REPLACED K+ 60 mEq. CONDOM CATH IN PLACE WITH DRAINING CLEAR YELLOW URINE. PT AFEBRILE THROUGHOUT SHIFT. NEW ORDER FOR OLINDA ENSURE TID. DIET UPGRADED TO PUREED. BED IS IN LOWEST AND LOCKED POSITION. POSSIBLE D/C TOMORROW IF K+ IS STABLE AND NO FEVER OVERNIGHT. CALL LIGHT WITHIN REACH. WILL ENDORSE TO NEXT SHIFT FOR CONTINUE CARE.
--- NOTE | 2018-10-08 19:30 | NUR ---
RN NOTES RECEIVED PT. AWAKE, NON-VERBAL, NO PAIN NOTED, NO SOB, SIDERAILSUPX2, CONTINUE TO MONITOR
[2018-10-08 20:00] VITALS: BP 149/74
[2018-10-08] MEDS: ATORVASTATIN 10 MG TABLET PO SCH (21:41)
[2018-10-08] MEDS: ENOXAPARIN SODIUM 40 MG/0.4 ML DISP.SYRIN SQ SCH (21:41)
[2018-10-08] MEDS: TAMSULOSIN 0.4 MG CAP.SR.24H PO SCH (21:41)
[2018-10-09] MEDS: ALBUTEROL FS 2.5 MG/3 ML VIAL.NEB NEB SCH ×3 (02:31→10:50)
[2018-10-09] MEDS: PIPERACILLIN /TAZOBACTAM 3.375 G in IV D5W 50 ML IV SCH ×2 (05:40→11:06)
--- NOTE | 2018-10-09 06:23 | NUR ---
RN NOTES AWAKE, MORNING CARE RENDERED, NO PAIN NOTED, NO SOB, SIDERAILSUPX2, PT. NEEDS ATTENDED
[2018-10-09 06:39] LABS: CALCIUM, SERUM 8.2 mg/dL (8.5-10.1); CARBON DIOXIDE 26 mmol/L (21-32); CHLORIDE 106 mmol/L (98-107); CREATININE 0.9 mg/dL (0.6-1.3); GLUCOSE 105 mg/dL (74-106); POTASSIUM 3.3 mmol/L (3.5-5.1); SODIUM SERUM 141 mmol/L (136-145); UREA NITROGEN, BLOOD 16 mg/dL (7-18)
--- NOTE | 2018-10-09 07:00 | NUR ---
MS RN OPENING NOTES PATIENT IN BED, NON VERBAL, ASLEEP IN BED BUT OPENS EYES WHEN CALLED NAME OR TOUCHED. NO ACUTE DISTRESS OR SOB NOTED AT THIS TIME. IV ACCESS ON RIGHT FOREARM G#22 INTACT AND PATENT. PT ON ISOLATION FOR MRSA OF THE NARES. PT ON ASPIRATION PRECAUTIONS. CONDOM CATH IN PLACE WITH DRAINING CLEAR YELLOW URINE. SAFETY PRECAUTIONS AND ISOLATION PRECAUTIONS MAINTAINED. BED IS IN LOWEST AND LOCKED POSITION. CALL LIGHT WITHIN REACH. WILL CONTINUE TO MONITOR.
[2018-10-09 08:00] VITALS: BP 146/82
[2018-10-09 08:13] VITALS: BP 146/82
[2018-10-09] MEDS: PANTOPRAZOLE 40 MG TABLET.DR PO SCH (08:13)
[2018-10-09] MEDS: LACTOBACILLUS RHAMNOSUS GG 1 EACH CAP.SPRINK PO SCH (08:13)
[2018-10-09] MEDS: ASPIRIN 81 MG TAB.CHEW PO SCH (08:13)
[2018-10-09] MEDS: LEVOTHYROXINE SODIUM 75 MCG TABLET PO SCH (08:13)
[2018-10-09] MEDS: LOSARTAN POTASSIUM 50 MG TABLET PO SCH (08:13)
[2018-10-09] MEDS: DOCUSATE SODIUM 250 MG CAPSULE PO SCH (08:13)
[2018-10-09] MEDS: ENSURE ENLIVE CHOC 237 ML CAN PO SCH ×2 (08:14→12:24)
[2018-10-09] MEDS: MUPIROCIN OINT 2% 22 GM TUBE SCH (08:15)
[2018-10-09] MEDS ORDERED: POTASSIUM CHLORIDE 20 MEQ POWDER PACKET PO ONE (11:30)
--- NOTE | 2018-10-09 13:56 | NUR ---
M/S RN - Discharge Patient alert to self, discharged to [facility] in stable condition. Reviewed discharge instructions with MARILYN Uribe and she verbalized full understanding and all questions answered to her satisfaction. Patient will be on Augmentin 500/125 mg po BID x 7 days for PNA. Saline lock removed on the RFA with catheter tip intact, no redness, no swelling at the site. Discharge photos taken on skin breakdown. Patient came in with no belongings. VSS, no s/s of pain, afebrile, no apparent distress seen. No fall/injury during hospital stay. Discharge papers sent with ambulance crew including copy of POLST (DNR). Endorsed to ambulance crew accordingly. Nate Ortiz aware of discharge and in agreement.
== END 2018-10-09 14:10 | DRG 871 ==
LOC: ER 10:51 → TELE 14:59 → MED 10-04 08:59
PROVIDERS: ADMIT Internal Medicine; ATTEND Nurse Practitioner Acute Care
DX: A41.9 Sepsis, unspecified organism (principal); J15.6 Pneumonia due to other Gram-negative bacteria; E44.1 Mild protein-calorie malnutrition; E87.2 Acidosis; D68.59 Other primary thrombophilia; G93.40 Encephalopathy, unspecified; F02.81 Dementia in other diseases classified elsewhere, unspecified severity, with behavioral disturbance; S72.052K Unspecified fracture of head of left femur, subsequent encounter for closed fracture with nonunion; D63.8 Anemia in other chronic diseases classified elsewhere; E86.0 Dehydration; N40.0 Benign prostatic hyperplasia without lower urinary tract symptoms; E78.5 Hyperlipidemia, unspecified; E87.6 Hypokalemia; I10 Essential (primary) hypertension; I25.10 Atherosclerotic heart disease of native coronary artery without angina pectoris; K21.9 Gastro-esophageal reflux disease without esophagitis; Z90.49 Acquired absence of other specified parts of digestive tract; Z68.23 Body mass index [BMI] 23.0-23.9, adult; G30.9 Alzheimer's disease, unspecified; F39 Unspecified mood [affective] disorder; F29 Unspecified psychosis not due to a substance or known physiological condition; E88.09 Other disorders of plasma-protein metabolism, not elsewhere classified; X58.XXXD Exposure to other specified factors, subsequent encounter
CPT/HCPCS: 36415; 71045-TC; 80048-TC; 80061-TC; 80076-TC; 80202-TC; 81000-TC; 83605-TC; 83735-TC; 84100-TC; 84484-TC; 85025-TC; 85730-TC; 87040-TC; 87081-TC; 87086-TC; 92526; 92611-TC; 93307-TC; 94799-TC; A4349; G0378; J1650; J1956; J2405; J2543; J3370; J3480; J3490; J7030; J7050; J7060